=== PATIENT | male | born 1985 | race Caucasian/White ===

== ENCOUNTER 2018-02-19 10:24 | Emergency (ER) | payer BC ==
[~2018-02-19 10:24] MED LIST: CEPH-13 PO; COL30T TOP; CYCL10TA29 PO; FEXO-72 PO; HUMALOG SC; IBUP800T37 PO; INSU100C14 SQ; INSU100V24 SQ; LEVO100T95 PO; LEVO50TA80 PO
[2018-02-19] MEDS ORDERED: LEVO-3 PO (10:36)
--- NOTE | 2018-02-19 10:51 | ER Report ---
History and Physical Time Seen By MD: 10:41 Hx. 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 PT DENIES ANY INJURY TO WRIST FROM A FALL OR CRUSH TYPE INJURY. PT THINKS IT MIGHT BE CARPAL TUNNEL. PT TOOK ALEVE FOR THE PAIN WITH NO RELIEF. PT STATES HE HAS NUMBNESS, TINGLING FROM THE WRIST DOWN. HPI/ROS CHIEF COMPLAINT: wrist pain and numbness in hand HISTORY OF PRESENT ILLNESS: This is a 32 year old male. Has numbness in the left hand from the wrist down. This is not completely numb, but a tingling sensation. Present in all fingers. Comes and goes. Swelling and pain/stiffness in the wrist. 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 no other arm pain. No neck pain. No injuries. No prior problems with wrist, hand or arm. Feels like the wrist is swollen compared to the right side. Allergies: Coded Allergies: cilastatin (Unverified Allergy, Unknown, RASH, 12/09/16) imipenem (Unverified Allergy, Unknown, RASH, 12/09/16) Home Meds Active Scripts Insulin Aspart (NOVOLOG) 100 Unit/1 Ml Cartridge, 100 UNIT SQ pump, #5 VIAL Prov:SRAVAN CRAWFORD DNP, DIGITAL ASSET COORDINATOR-BC 10/22/17 Reported Medications Levothyroxine Sodium (LEVOTHYROXINE SODIUM) 100 Mcg Tablet, 125 MCG PO QDAY, TAB 02/19/18 Discontinued Scripts Levothyroxine Sodium (SYNTHROID) 50 Mcg Tablet, 2 TAB PO QDAY, #60 TAB Prov:SRAVAN CRAWFORD DNP DIGITAL ASSET COORDINATOR-BC 10/21/17 Reviewed Nurses Notes: Yes Hx Smoking: No Smoking Status: Never Smoker Hx Substance Use Disorder: No Hx Alcohol Use: Yes (OCC) Constitutional Vital Sign - Last 24 Hours 02/19/18 02/19/18 10:30 11:00 Temp 97.9 98.0 Pulse 65 66 Resp 16 16 B/P (MAP) 119/71 112/72 (85) Pulse Ox 95 94 O2 Delivery Room Air Room Air Physical Exam General: Alert, no distress. Musculoskeletal: Very mild tenderness with palpation throughout the wrist, but no focal pain. Mild swelling diffusely. Neuro: Tingling sensation in all fingers. Has Negative phalen, positive tinell' s. 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 Skin: no rash or lesions. Cardiovascular: normal capillary refill and pulses. Medical Decision Making ED Course/Re-evaluation ED Course This appears to be overuse injury with diffuse swelling. Recommended conservative management with AMY wrap, Ibuprofen or aleve, ice and rest. Re- evaluation with orthopedic surgery in the next 5-7 days if not improving. Decision to Disposition Date: Feb 19, 2018 Decision to Disposition Time: 10:52 Depart Departure Latest Vital Signs Vital Signs Date Time Temp Pulse Resp B/P (MAP) Pulse Ox O2 Delivery O2 Flow Rate FiO2 02/19/18 11:00 98.0 66 16 112/72 (85) 94 Room Air Impression: Primary Impression: Overuse syndrome of hand Condition: Improved Disposition: HOME OR SELF-CARE Referrals: IRENE COLLINS APRN DIGITAL ASSET COORDINATOR-C (PCP) Patient Instructions: Carpal Tunnel Syndrome Exercises (GEN) Additional Instructions: Your symptoms seem to be due to overuse and inflammation of the wrist and hand. Take Aleve, two over the counter tablets twice a day. Use the AMY wrap for compression Apply ice every 1-2 hours for 15 minutes. Gentle range of motion exercises. No heavy use for a few days. Follow-up with [facility] if not improving. Problem Qualifiers Primary Impression: Overuse syndrome of hand Encounter type: initial encounter Laterality: left Qualified Codes: S66.912A - Strain of unspecified muscle, fascia and tendon at wrist and hand level, left hand, initial encounter ALESSANDRA GARCIA MD Feb 19, 2018 10:51
[2018-02-19 11:00] VITALS: BP 112/72
== END 2018-02-19 11:11 | disposition home or self-care (01) ==
LOC: ER 10:27
DX: S66.912A Strain of unspecified muscle, fascia and tendon at wrist and hand level, left hand, initial encounter (principal); X50.0XXA Overexertion from strenuous movement or load, initial encounter
CPT/HCPCS: 99281